=== PATIENT | female | born 1965 ===

== ENCOUNTER 2017-09-15 18:35 | Emergency (ER) | payer OTHER ==
[2017-09-15 18:35] VITALS: BMI 29.0
[2017-09-15] MEDS ORDERED: Sodium Chloride 0.9% 1,000 ML IV STA (19:29)
--- NOTE | 2017-09-15 20:14 | ED PDOC ---
HPI: Female Pain Time Seen by Provider: 09/15/17 19:05 Chief Complaint (Nursing): Female Genitourinary Chief Complaint (Provider): 19:05 History Per: Patient (51 y/o female here for evaluation of fever/uri/cough/ dysuria/hematuria. Denies any back pain/vomiting/diarrhea. Notes h/o gastritis ongoing.) Past Medical History Reviewed: Historical Data, Nursing Documentation, Vital Signs Vital Signs: Last Vital Signs Temp 99.6 F 09/15/17 18:39 Pulse 121 H 09/15/17 18:39 Resp 22 09/15/17 18:39 BP 157/111 H 09/15/17 18:39 Pulse Ox 99 09/15/17 18:39 - Medical History PMH: Denies: Chronic Kidney Disease Other PMH: HYST - Family History Family History: States: Unknown Family Hx - Home Medications Home Medications: Ambulatory Orders Medication Instructions Recorded Acetaminophen/Butalbital/Caf 1 tab PO TID PRN #20 tab 09/03/16 [Fioricet] - Allergies Allergies/Adverse Reactions: Allergies Allergy/AdvReac Type Severity Reaction Status Date / Time No Known Allergies Allergy Verified 09/15/17 18:38 Review of Systems ROS Statement: Except As Marked, All Systems Reviewed And Found Negative Constitutional: Positive for: Fever Respiratory: Positive for: Cough Genitourinary Female: Positive for: Dysuria, Hematuria Physical Exam - Reviewed Nursing Documentation Reviewed: Yes Vital Signs Reviewed: Yes - Physical Exam Appears: Positive for: Well, Non-toxic, No Acute Distress Head Exam: Positive for: ATRAUMATIC, NORMAL INSPECTION, NORMOCEPHALIC Skin: Positive for: Normal Color, Warm, DRY Eye Exam: Positive for: EOMI, Normal appearance, PERRL ENT: Positive for: Normal ENT Inspection Neck: Positive for: Normal, Painless ROM Cardiovascular/Chest: Positive for: Regular Rate, Rhythm Respiratory: Positive for: CNT, Normal Breath Sounds Gastrointestinal/Abdominal: Positive for: Normal Exam, Bowel Sounds, Soft, Tenderness (suprapubic tenderness) Back: Positive for: Normal Inspection. Negative for: L CVA Tenderness, R CVA Tenderness Extremity: Positive for: Normal ROM Neurologic/Psych: Positive for: Alert, Oriented - ECG O2 Sat by Pulse Oximetry: 99 - Progress ED Course And Treament: NS 1 LITER WIDE OPEN Disposition - Clinical Impression Clinical Impression: Febrile illness - Patient ED Disposition Is Patient to be Admitted: Transfer of Care - Disposition Disposition: Transfer of Care Disposition Time: 20:00 Condition: FAIR
[2017-09-15 20:18] LABS: RBC URINE 5483 /hpf (0-3); URINE BACTERIA MANY (<OCC); WBC URINE 122 /hpf (0-5)
[2017-09-15 20:25] LABS: URINE COLOR RED (YELLOW); URINE GLUCOSE (UA) NEGATIVE (Normal)
[2017-09-15 20:26] LABS: PH,URINE 6.5 (5.0-8.0); URINE BILIRUBIN NEGATIVE (NEGATIVE); URINE BLOOD LARGE (NEGATIVE); URINE KETONE NEGATIVE (NEGATIVE); URINE LEUKOCYTE ESTERASE MODERATE Leu/uL (Negative); URINE PROTEIN 300 mg/dL (NEGATIVE); URINE UROBILINOGEN 0.2 mg/dL (0.2-1.0)
[2017-09-15 20:53] LABS: BASO % 0.3 % (0.0-2.0); EOS # 0.2 K/uL (0.0-0.7); EOS % 1.8 % (0.0-4.0); HEMATOCRIT 42.1 % (34.0-47.0); LYMPH # 4.1 K/uL (1.0-4.3); LYMPH % 29.6 % (20.0-40.0); MEAN CORPUSCULAR HGB CONC 32.1 g/dL (33.0-37.0); MEAN PLATELET VOLUME 9.6 fl (7.2-11.7); MONO % 6.9 % (0.0-10.0); NEUT # 8.6 K/uL (1.8-7.0); NEUT % 61.4 % (50.0-75.0); NRBC % 0.1 % (0.0-0.0)
[2017-09-15 21:05] LABS: BLOOD UREA NITROGEN 12 mg/dl (7-17); CALCIUM 9.3 mg/dL (8.4-10.2); CARBON DIOXIDE 25 mmol/L (22-30); CHLORIDE 104 mmol/L (98-107); GFR AFRICAN-AMERICAN > 60; GLUCOSE,RANDOM 123 mg/dL (65-105); POTASSIUM 4.1 MMOL/L (3.6-5.0); SODIUM 144 mmol/l (132-148)
[2017-09-15] MEDS ORDERED: cefTRIAXone 1 gm in cefTRIAXone IV 1 gm in Dextros 50 ML IVPB STA (21:32)
[2017-09-15] MEDS ORDERED: cefTRIAXone IV 1 gm in Dextros 50 ML IVPB STA (21:34)
--- NOTE | 2017-09-15 21:36 | ED PDOC ---
- Laboratory Results Result Diagrams: 09/15/17 20:48 09/15/17 20:48 - ECG O2 Sat by Pulse Oximetry: 99 - Progress ED Course And Treament: 1999 Signed out to me pending lab results. 2049 On my initial evaluation, pt. in no distress. Reports pain is localized to suprapubic area. Also states that pt. has hx of elevated blood pressure which she's known in the past but has never taken medications for it. Denies back pain /flank pain, chest pain, SOB, visual changes, headache. Abd soft and non-tender. No CVA tenderness b/l. UA showed UTI. Blood culture x 2, rocephin 1gm IV ordered. 2349 On re-evaluation, pt. reports feeling much better. Disposition - Clinical Impression Clinical Impression: Febrile illness, UTI (urinary tract infection) - POA Present On Arrival: None - Disposition Referrals: [facility] [Outside] Disposition: Routine/Home Disposition Time: 23:50 Condition: IMPROVED Prescriptions: Nitrofurantoin Macrocrystals [Macrobid] 100 mg PO BID #14 cap Phenazopyridine [Pyridium] 100 mg PO BID #6 tab Instructions: Urinary Tract Infection in Women (ED) Forms: [employer] (Yi) Print Language: GREEK
[2017-09-15] MEDS ORDERED: cefTRIAXone IV 1 gm in Dextros 50 ML IVPB ONE (22:51)
[2017-09-15 23:01] VITALS: RESP 18
[2017-09-15 23:28] LABS: VENOUS BLOOD GAS BASE EXCESS 2.7 mmol/L (0.0-2.0); VENOUS BLOOD GAS PCO2 44 mmHg (40-60); VENOUS BLOOD PH 7.41 (7.32-7.43)
[2017-09-16 00:34] VITALS: BP 101/58; PULSE 75; TEMP 98.1; O2SAT 98
== END 2017-09-16 00:34 | disposition home or self-care (01) ==
LOC: H.ER 18:35
DX: N39.0 Urinary tract infection, site not specified (principal); R50.9 Fever, unspecified
CPT/HCPCS: 80048; 81003; 81025; 82803; 85025; 87040; 87086; 96365; 96375; 99284; J0696; J1885; J7040

== ENCOUNTER 2017-10-25 13:35 | Emergency (ER) | payer OTHER ==
[2017-10-25 13:35] VITALS: BMI 29.0
[2017-10-25 13:51] VITALS: BP 158/80; PULSE 95; RESP 16; TEMP 98.5; O2SAT 98
--- NOTE | 2017-10-25 14:03 | ED PDOC ---
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 Patient also complains of lower abdominal pain. She denies any vaginal bleeding or discharge and denies any concern for STD. PMD: None Provided Past Medical History Reviewed: Historical Data, Nursing Documentation, Vital Signs Vital Signs: Last Vital Signs Temp 98.5 F 10/25/17 13:48 Pulse 95 H 10/25/17 13:48 Resp 16 10/25/17 13:48 BP 158/80 H 10/25/17 13:48 Pulse Ox 98 10/25/17 13:48 - Medical History PMH: Gastritis, HTN, Hypothyroidism Other PMH: UTIs - Surgical History Other surgeries: fibroid removal - Family History Family History: States: No Known Family Hx - Living Arrangements Living Arrangements: With Family - Social History Current smoker - smoking cessation education provided: No Alcohol: None Drugs: Denies - Home Medications Home Medications: Ambulatory Orders Medication Instructions Recorded Acetaminophen/Butalbital/Caf 1 tab PO TID PRN #20 tab 09/03/16 [Fioricet] Nitrofurantoin Macrocrystals 100 mg PO BID #14 cap 09/15/17 [Macrobid] Phenazopyridine [Pyridium] 100 mg PO BID #6 tab 09/15/17 Ciprofloxacin [Cipro] 500 mg PO BID #14 tab 10/25/17 - Allergies Allergies/Adverse Reactions: Allergies Allergy/AdvReac Type Severity Reaction Status Date / Time No Known Allergies Allergy Verified 10/25/17 13:47 Review of Systems ROS Statement: Except As Marked, All Systems Reviewed And Found Negative Constitutional: Negative for: Fever, Chills Gastrointestinal: Positive for: Abdominal Pain (lower) Genitourinary Female: Positive for: Dysuria, Frequency. Negative for: Incontinence, Hematuria, Vaginal Discharge, Vaginal Bleeding Physical Exam - Reviewed Nursing Documentation Reviewed: Yes Vital Signs Reviewed: Yes - Physical Exam Appears: Positive for: Well, Non-toxic, No Acute Distress Head Exam: Positive for: ATRAUMATIC, NORMAL INSPECTION, NORMOCEPHALIC Skin: Positive for: Normal Color. Negative for: Rash Eye Exam: Positive for: Normal appearance Cardiovascular/Chest: Positive for: Regular Rate, Rhythm Respiratory: Positive for: Normal Breath Sounds Gastrointestinal/Abdominal: Positive for: Tenderness (suprapubic). Negative for : Guarding, Rebound Back: Negative for: L CVA Tenderness, R CVA Tenderness Neurologic/Psych: Positive for: Alert, Oriented - Laboratory Results Urine dip results: Positive for: Leukocyte Esterase (small), Blood (large). Negative for: Nitrate, Ketones, Glucose, Bilirubin, Protein - ECG O2 Sat by Pulse Oximetry: 98 (RA) Pulse Ox Interpretation: Normal Medical Decision Making Medical Decision Making: Time: 13:53 Initial Impression: 52 y/o female with UTI symptoms Initial Plan: --Urine Dip --Urine Culture Rx cipro, advised fluids and follow up with PMD. Disposition - Clinical Impression Clinical Impression: UTI (urinary tract infection) - Patient ED Disposition Is Patient to be Admitted: No Counseled Patient/Family Regarding: Studies Performed, Diagnosis, Need For Followup, Rx Given - Disposition Referrals: [facility] [Outside] Disposition: Routine/Home Disposition Time: 14:22 Condition: STABLE Additional Instructions: Take rx meds as directed. Follow up with primary care doctor in 2-3 days. Prescriptions: Ciprofloxacin [Cipro] 500 mg PO BID #14 tab Instructions: Urinary Tract Infection in Women (ED) Forms: [employer] (Kyrgyz) Print Language: BULGARIAN
== END 2017-10-25 14:30 | disposition home or self-care (01) ==
LOC: H.ER 13:35
DX: N39.0 Urinary tract infection, site not specified (principal); E03.9 Hypothyroidism, unspecified; I10 Essential (primary) hypertension

== ENCOUNTER 2018-01-05 20:44 | Emergency (ER) | payer OTHER ==
[2018-01-05 20:44] VITALS: BMI 29.0
[2018-01-05 20:50] VITALS: BP 149/88; RESP 16; TEMP 97.9; O2SAT 100
--- NOTE | 2018-01-05 22:00 | ED PDOC ---
HPI: Trauma/Fall - HPI Time Seen by Provider: 01/05/18 21:00 Chief Complaint (Nursing): Trauma Chief Complaint (Provider): Head Injury History/Exam Limitations: no limitations Injury Occurred (Timing): Just Before Arrival Additional Complaint(s): 52 year old female presents to the ED post fall. The patient states that just prior to arrivals he slipped and fell on the snow causing her to fall hitting the back of her head. Patient is currently complaining of pain to the posterior aspect of the head and states that the pain radiates down her neck. patient reports he has not taken anything for pain. Denies loss of consciousness, nausea , vomiting, blurry vision, focal weakness, difficulty with speech or gait. PMD: Marilynn Davey - Fall Fall:Prior To Injury: denies: [place] Lightheaded Past Medical History Vital Signs: Last Vital Signs Temp 97.9 F 01/05/18 20:47 Pulse 110 H 01/05/18 20:47 Resp 16 01/05/18 20:47 BP 149/88 01/05/18 20:47 Pulse Ox 100 01/05/18 20:47 - Medical History PMH: Diabetes (pre), Gastritis, HTN, Hypothyroidism Denies: Chronic Kidney Disease - Surgical History Surgical History: No Surg Hx - Family History Family History: States: Unknown Family Hx - Social History Current smoker - smoking cessation education provided: No Ex-Smoker (has not smoked in the last 12 months): No Alcohol: None Drugs: Denies - Home Medications Home Medications: Ambulatory Orders Medication Instructions Recorded Acetaminophen/Butalbital/Caf 1 tab PO TID PRN #20 tab 09/03/16 [Fioricet] Nitrofurantoin Macrocrystals 100 mg PO BID #14 cap 09/15/17 [Macrobid] Phenazopyridine [Pyridium] 100 mg PO BID #6 tab 09/15/17 Ciprofloxacin [Cipro] 500 mg PO BID #14 tab 10/25/17 Ibuprofen [Motrin Tab] 600 mg PO Q8 PRN #30 tab 01/05/18 - Allergies Allergies/Adverse Reactions: Allergies Allergy/AdvReac Type Severity Reaction Status Date / Time No Known Allergies Allergy Verified 01/05/18 20:47 Review of Systems ROS Statement: Except As Marked, All Systems Reviewed And Found Negative Constitutional: Positive for: Other (Head Injury) Eyes: Negative for: Vision Change Gastrointestinal: Negative for: Nausea, Vomiting Neurological: Positive for: Other (no focal weakness) Physical Exam - Reviewed Nursing Documentation Reviewed: Yes Vital Signs Reviewed: Yes - Physical Exam Appears: Positive for: In Acute Distress (acute painful distress) Head Exam: Positive for: NORMAL INSPECTION, NORMOCEPHALIC. Negative for: ATRAUMATIC (subtle hematoma right occiput with tenderness to palpation ) Eye Exam: Positive for: Normal appearance, EOMI, PERRL, Conjunctival injection ENT: Positive for: Normal ENT Inspection Neck: Positive for: Painless ROM. Negative for: Normal (Tenderness to palpation along rt Para spinal neck) Cardiovascular/Chest: Positive for: Regular Rate, Rhythm. Negative for: Tachycardia Respiratory: Positive for: Normal Breath Sounds. Negative for: Rhonchi, Wheezing, Respiratory Distress Gastrointestinal/Abdominal: Positive for: Normal Exam, Bowel Sounds, Soft. Negative for: Tenderness, Guarding, Rebound Back: Positive for: Normal Inspection. Negative for: L CVA Tenderness, R CVA Tenderness Extremity: Positive for: Normal ROM. Negative for: Tenderness, Deformity, Swelling Neurologic/Psych: Positive for: Alert, Oriented, Gait - ECG O2 Sat by Pulse Oximetry: 100 (RA) Pulse Ox Interpretation: Normal Medical Decision Making Medical Decision Makin Initial Impression 52 year old female presenting with head injury r/o traumatic brain injury Initial Plan: * CT Cervical Spine w/o contrast * CT Head w/o Contrast * Tylenol 975mg PO * Reevaluation EXAM: CT Head Without Intravenous Contrast CLINICAL HISTORY: 52 years old, female; Injury or trauma; Fall; Initial encounter; Laceration; Consciousness not specified; Without residual foreign body; Head, generalized; Injury date: Today ; Injury details: Falling backards on snow; Additional info: Head injury TECHNIQUE: Axial computed tomography images of the head/brain without intravenous contrast. All CT scans at this facility use one or more dose reduction techniques, viz.: automated exposure control; ma/kV adjustment per patient size (including targeted exams where dose is matched to indication; i.e. head); or iterative reconstruction technique. Coronal and sagittal reformatted images were created and reviewed. COMPARISON: CT - HEAD W/O CONTRAST 2016-09-03 15:46 FINDINGS: Brain: Minimal atrophy. No intracranial hemorrhage. No mass. No edema. Ventricles: No hydrocephalus. Bones/joints: No acute fracture. Soft tissues: RIGHT parietal soft tissue swelling. Sinuses: Scattered minimal mucosal thickening of ethmoid sinuses. Mastoid air cells: No mastoid effusion. Orbits: Unremarkable as visualized. IMPRESSION: 1. No intracranial hemorrhage. 2. Incidental/non-acute findings are described above. Thank you for allowing us to participate in the care of your patient. Dictated and Authenticated by: Jose Carlos MD 01/05/2018 11:42 PM Eastern Time ([place] & [place]) EXAM: CT Cervical Spine Without Intravenous Contrast CLINICAL HISTORY: 52 years old, female; Injury or trauma; Fall; Initial encounter; Laceration; Without foreign body; Injury date: Today; Injury details: Falling backards on snow; Additional info: Head injury TECHNIQUE: Axial computed tomography images of the cervical spine without intravenous contrast. All CT scans at this facility use one or more dose reduction techniques, viz.: automated exposure control; ma/kV adjustment per patient size (including targeted exams where dose is matched to indication; i.e. head); or iterative reconstruction technique. COMPARISON: No relevant prior studies available. FINDINGS: Vertebrae: No acute fracture. Straightening of cervical spine. Discs/spinal canal/neural foramina: No significant spinal canal stenosis. Soft tissues: Unremarkable. Lung apices: Unremarkable as visualized. IMPRESSION: 1. No fracture. Thank you for allowing us to participate in the care of your patient. Dictated and Authenticated by: Jose Carlos MD 01/05/2018 11:54 PM Eastern Time ([place] & [place]) Disposition - Clinical Impression Clinical Impression: Head injury Counseled Patient/Family Regarding: Studies Performed, Diagnosis, Need For Followup, Rx Given - Disposition Referrals: Marilynn Davey [Staff Provider] - 01/07/18 Disposition: Routine/Home Disposition Time: 23:55 Condition: IMPROVED Prescriptions: Ibuprofen [Motrin Tab] 600 mg PO Q8 PRN #30 tab PRN Reason: Pain, Moderate (4-7) Instructions: Closed Head Injury, Preventing Falls Print Language: CHINESE
--- NOTE | 2018-01-05 23:43 | CT ---
EXAM: CT Head Without Intravenous Contrast CLINICAL HISTORY: 52 years old, female; Injury or trauma; Fall; Initial encounter; Laceration; Consciousness not specified; Without residual foreign body; Head, generalized; Injury date: Today; Injury details: Falling backards on snow; Additional info: Head injury TECHNIQUE: Axial computed tomography images of the head/brain without intravenous contrast. All CT scans at this facility use one or more dose reduction techniques, viz.: automated exposure control; ma/kV adjustment per patient size (including targeted exams where dose is matched to indication; i.e. head); or iterative reconstruction technique. Coronal and sagittal reformatted images were created and reviewed. COMPARISON: CT - HEAD W/O CONTRAST 2016-09-03 15:46 FINDINGS: Brain: Minimal atrophy. No intracranial hemorrhage. No mass. No edema. Ventricles: No hydrocephalus. Bones/joints: No acute fracture. Soft tissues: RIGHT parietal soft tissue swelling. Sinuses: Scattered minimal mucosal thickening of ethmoid sinuses. Mastoid air cells: No mastoid effusion. Orbits: Unremarkable as visualized. IMPRESSION: 1. No intracranial hemorrhage. 2. Incidental/non-acute findings are described above.
--- NOTE | 2018-01-05 23:54 | CT ---
EXAM: CT Cervical Spine Without Intravenous Contrast CLINICAL HISTORY: 52 years old, female; Injury or trauma; Fall; Initial encounter; Laceration; Without foreign body; Injury date: Today; Injury details: Falling backards on snow; Additional info: Head injury TECHNIQUE: Axial computed tomography images of the cervical spine without intravenous contrast. All CT scans at this facility use one or more dose reduction techniques, viz.: automated exposure control; ma/kV adjustment per patient size (including targeted exams where dose is matched to indication; i.e. head); or iterative reconstruction technique. COMPARISON: No relevant prior studies available. FINDINGS: Vertebrae: No acute fracture. Straightening of cervical spine. Discs/spinal canal/neural foramina: No significant spinal canal stenosis. Soft tissues: Unremarkable. Lung apices: Unremarkable as visualized. IMPRESSION: 1. No fracture.
[2018-01-06 00:39] VITALS: PULSE 95
== END 2018-01-06 00:36 | disposition home or self-care (01) ==
LOC: H.ER 20:44
DX: S09.90XA Unspecified injury of head, initial encounter (principal); W00.0XXA Fall on same level due to ice and snow, initial encounter; I10 Essential (primary) hypertension; Z87.891 Personal history of nicotine dependence; E03.9 Hypothyroidism, unspecified